=== PATIENT | male | born 1960 | race Caucasian/White ===

== ENCOUNTER 2021-06-01 14:35 | Emergency (ER) | payer BC ==
[2021-06-01] MEDS ORDERED: TETRACAINE 0.5% OPHTH SOLN 2 ML BOTTLE ONE (14:41)
[2021-06-01] MEDS ORDERED: FLUORESCEIN NA 1 EA STRIP OU ONE (14:42)
[2021-06-01 14:50] VITALS: BP 170/92; PULSE 72; TEMP 99.2; BMI 30.7
[2021-06-01] MEDS ORDERED: DIPHTH,PERTUSS(ACELL),TET VAC 0.5 ML VIAL IM ONE (15:47)
[2021-06-01] MEDS ORDERED: DIPHTH,PERTUSS(ACELL),TET 0.5 ML DISP.SYRIN IM ONE ×2 (15:52→15:53)
== END 2021-06-01 16:01 | disposition home or self-care (01) ==
LOC: FER 14:35
DX: T15.90XA Foreign body on external eye, part unspecified, unspecified eye, initial encounter (principal)
CPT/HCPCS: 90715; 99284-25